=== PATIENT | female | born 1965 | race African-American/Black ===

== ENCOUNTER 2017-01-29 00:08 | Emergency (ER) | payer OTHER ==
[~2017-01-29] VITALS: Ht 157.5 cm; Wt 60.8 kg
[~2017-01-29 00:08] MED LIST: ACCU-CHEK; ACCU-CHEK ACTIVE STR SC; ACCU-CHEK COMPACT ST; ACCU-CHEK COMPACT ST XX; ACCU-CHEK SOFTCLIX SC; ACCU-CHEK SOFTCLIX TOP; ACCU-CHEK SOFTCLIX XX; ACCUPRIL5 MG PO; AMLODIPINE5 MG PO; AMOXICILLIN/PO500 MG PO; AMOXICILLIN500 MG OR; AMOXICILLIN500 MG PO; ASPIRIN325 MG PO; ATIVAN1 MG OR; AUGMENTIN875TAB PO; AVELOX400 MG OR; BENADRYL 50MG C50 MG PO; CARDIZEM CD240 MG PO; CITALOPRAM HYDR20 MG OR; CITALOPRAM20 MG PO; CITALOPRAM40 MG PO; CLONAZEP ODT0.5 MG OR; CLONAZEPAM0.5 MG PO; CLONIDINE0.1 MG PO; COUMADIN5 MG PO; COUMADIN7.5 MG PO; ENALAPRIL10 MG OR; ENOXAPARIN60 MG/0.1 SC; FERROUS SULF325 M1 PO; FLEXERIL OR; FLONASE NASAL50 MCG; FLONASE SPRAY50 MC1; FLONASE0.05 %; FLUARIX QUADRIV1 IN1 IM; FLUZONE SPLT1 M1 IM; GLIMEPIRIDE1 MG PO; GLYBURIDE1.25 MG OR; HYCODAN5 MG OR; HYDRALAZINE25 MG PO; HYDROCHLOROTH12.5 MG OR; HYDROCHLOROTH12.5 MG PO; IRON325 MG OR; IRON325 MG PO; LEXAPRO20 MG OR; LEXAPRO20 MG PO; LIPITOR80 MG PO; LISINOPRIL10 MG OR; LISINOPRIL10 MG PO; LORTAB 7.57.5 MG PO; MELOXICAM15 MG PO; METFORMIN1000 MG PO; METFORMIN500 M1 PO; METFORMIN500 MG PO; METOPROLOL25 MG PO; METRONIDAZOL500 MG PO; MOTRIN600 MG OR; MUCINEX600 MG PO; NAPROSYN250 MG PO; NAPROSYN500 MG OR; NAPROSYN500 MG PO; PEPCID40 MG OR; PRAVASTATIN10 MG PO; PREVACID30 M2 OR; PREVACID30 M2 PO; PROMETHAZINE25 MG OR; PROTONIX40 M2 PO; PROTONIX40 MG PO; ROBITUSSIN AC10 ML OR; SIMVASTATIN5 MG PO; TESSALON PER100 MG PO; TOPROL XL25 M1 PO; TORADOL IM; WARFARIN2.5 MG PO; WARFARIN5 MG PO; XANAX0.25 MG PO; ZESTRIL/PRI20 MG/TAB PO; ZPAK PO
[2017-01-29] MEDS ORDERED: AMOXICILLIN500 MG PO (01:07)
[2017-01-29 01:20] VITALS: BP 162/86
== END 2017-01-29 01:20 | disposition home or self-care (01) | DRG 153 ==
LOC: ED 00:08
DX: J02.0 Streptococcal pharyngitis (principal); I10 Essential (primary) hypertension; J01.90 Acute sinusitis, unspecified; F41.9 Anxiety disorder, unspecified; E11.9 Type 2 diabetes mellitus without complications; Z86.73 Personal history of transient ischemic attack (TIA), and cerebral infarction without residual deficits

== ENCOUNTER 2017-03-29 19:39 | Emergency (ER) | payer OTHER ==
[~2017-03-29] VITALS: Ht 157.5 cm; Wt 59.8 kg
[2017-03-29] MEDS ORDERED: JANUVIA50 MG PO (19:50)
[2017-03-29] MEDS ORDERED: METFORMIN HCL1000 MG PO (19:51)
[2017-03-29] MEDS ORDERED: AMOXICILLIN500 MG PO (20:43)
[2017-03-29 20:59] VITALS: BP 130/77
== END 2017-03-29 20:59 | disposition home or self-care (01) | DRG 153 ==
LOC: ED 19:39
DX: H66.92 Otitis media, unspecified, left ear (principal); J02.9 Acute pharyngitis, unspecified; I10 Essential (primary) hypertension; F41.9 Anxiety disorder, unspecified; E11.9 Type 2 diabetes mellitus without complications; Z86.73 Personal history of transient ischemic attack (TIA), and cerebral infarction without residual deficits

== ENCOUNTER 2017-06-22 17:29 | Emergency (ER) | payer OTHER ==
[~2017-06-22] VITALS: Ht 157.5 cm; Wt 56.0 kg
[~2017-06-22 17:29] MED LIST changes: +JANUVIA50 MG PO; +METFORMIN HCL1000 MG PO
[2017-06-22 18:17] LABS: INFLUENZA A NONE DETECTED (NONE DETECT); INFLUENZA B NONE DETECTED (NONE DETECT)
[2017-06-22 18:34] VITALS: BP 135/71
== END 2017-06-22 18:34 | disposition home or self-care (01) | DRG 866 ==
LOC: ED 17:29
PROVIDERS: Emergency Medicine
DX: B34.9 Viral infection, unspecified (principal); R05 Cough

== ENCOUNTER 2017-09-10 14:54 | Emergency (ER) | payer OTHER ==
[~2017-09-10] VITALS: Ht 157.5 cm; Wt 57.0 kg
[2017-09-10] MEDS ORDERED: LISINOP/HCTZ1 TAB PO (15:05)
[2017-09-10] MEDS ORDERED: ATORVASTATIN CA40 MG PO (15:07)
[2017-09-10] MEDS ORDERED: AMLODIPINE5 MG PO (15:07)
[2017-09-10] MEDS ORDERED: TGT ENTERIC-CO325 MG PO (15:08)
[2017-09-10] MEDS ORDERED: CITALOPRAM20 MG PO ×2 (15:09→16:40)
[2017-09-10] MEDS ORDERED: FLOVENT DI50 MCG/BLI (15:10)
[2017-09-10 15:41] LABS: HEMATOCRIT 41.1 % (37.0-47.0); HEMOGLOBIN 13.4 g/dl (12.0-16.0); IMMATURE GRANULOCYTES 0.2 % (0.0-1.0); MEAN CELL VOLUME 87.6 fL CALC (80.0-100.0); MEAN CORPUSCULAR HGB 28.6 pG CALC (26.0-32.0); MEAN CORPUSCULAR HGB CONC 32.6 g/L CALC (32.0-36.0); NEUT# 6.38 thou/uL (2.00-7.15); RED BLOOD COUNT 4.69 mill/uL (4.20-5.60); RED CELL DISTRI WIDTH 12.8 % (11.5-15.5)
[2017-09-10 15:50] LABS: ALKALINE PHOSPHATASE 98 u/l (38-126); BILIRUBIN, TOTAL 0.7 mg/dL (0.0-1.4); BUN 12 mg/dL (7-17); BUN/CREATININE RATIO 20 (12-20 (CALC)); CARBON DIOXIDE 24 mmol/l (22-30); CHLORIDE 104 mmol/l (95-108); CREATININE 0.6 mg/dL (0.5-1.0); GFR > 60 ML/MIN (>=60 (CALC)); GFR FOR AFR.AMER. > 60 ML/MIN (>=60 (CALC)); POTASSIUM 4.3 mmol/l (3.5-5.1); SGOT/AST 24 u/l (14-36); SGPT/ALT 28 u/l (9-52); TOTAL PROTEIN 8.7 g/dL (6.3-8.2)
[2017-09-10 15:56] LABS: ALBUMIN 4.7 g/dL (3.2-5.0); ANION GAP 22 (6-22 (CALC)); SODIUM 146 mmol/l (137-146)
[2017-09-10] MEDS ORDERED: ACCURETIC PO (16:40)
[2017-09-10 17:06] VITALS: BP 168/87
== END 2017-09-10 17:07 | disposition home or self-care (01) | DRG 880 ==
LOC: ED 14:54
PROVIDERS: Family Medicine
DX: F41.9 Anxiety disorder, unspecified (principal); I69.351 Hemiplegia and hemiparesis following cerebral infarction affecting right dominant side; I16.0 Hypertensive urgency; R07.9 Chest pain, unspecified
CPT/HCPCS: J2060

== ENCOUNTER 2018-11-29 14:24 | Observation (INO) | payer OTHER ==
[~2018-11-29] VITALS: Ht 162.6 cm; Wt 68.0 kg
[~2018-11-29 14:24] MED LIST changes: +ACCURETIC PO; +ATORVASTATIN CA40 MG PO; +FLOVENT DI50 MCG/BLI; +LISINOP/HCTZ1 TAB PO; +TGT ENTERIC-CO325 MG PO
--- NOTE | 2018-11-29 14:37 | NUR ---
PT TO ROOM VIA WC
[2018-11-29] MEDS ORDERED: JANUVIA100 MG PO (14:53)
--- NOTE | 2018-11-29 14:54 | NUR ---
PT COMPLAINED OF SEEING STARS THAT TURNED INTO CHEST PAIN EN ROUTE TO [facility] SP[facility], STATES PAIN IS EASING OFF CURRENTLY 2, WILL CONTINUE TO MONITOR.
[2018-11-29 15:20] LABS: HEMATOCRIT 35.2 % (37.0-47.0); IMMATURE GRANULOCYTES 0.4 % (0.0-5.0); MEAN CELL VOLUME 87.6 fL CALC (80.0-100.0); MEAN CORPUSCULAR HGB 28.4 pG CALC (26.0-32.0); MEAN CORPUSCULAR HGB CONC 32.4 g/L CALC (32.0-36.0); NEUT# 2.67 thou/uL (2.00-7.15); RED BLOOD COUNT 4.02 mill/uL (4.20-5.60); RED CELL DISTRI WIDTH 12.3 % (11.5-15.5)
[2018-11-29 15:25] LABS: HEMOGLOBIN 11.4 g/dl (12.0-16.0)
[2018-11-29 15:34] LABS: ANION GAP 13 (6-22 (CALC)); BUN 15 mg/dL (7-17); BUN/CREATININE RATIO 28 (12-20 (CALC)); CARBON DIOXIDE 27 mmol/l (22-30); CHLORIDE 104 mmol/l (95-108); CREATININE 0.6 mg/dL (0.5-1.0); GFR > 60 ML/MIN (>=60 (CALC)); GFR FOR AFR.AMER. > 60 ML/MIN (>=60 (CALC)); POTASSIUM 4.2 mmol/l (3.5-5.1); SODIUM 140 mmol/l (137-146)
--- NOTE | 2018-11-29 15:45 | NUR ---
PT RESTING ON STRETCHER, NO COMPLAINTS STATED AT THIS TIME. STATES THAT SHE IS FEELING MUCH BETTER
--- NOTE | 2018-11-29 16:50 | NUR ---
PT RESTING NO NEW COMPLAINTS OFFERED, CP RESOVLED, NO FRUTHER VISION COMPLAINTS AWARE OF PLANNED ADMISSION, WILL CONTINUE TO MONITOR.
--- NOTE | 2018-11-29 17:36 | NUR ---
REPORT CALLED TO TEDDY MARSH ON MED SURG
--- NOTE | 2018-11-29 17:45 | NUR ---
PT ADMITTED TO MED SURG TRASNPORTED VIA STRETCHER WITH TELE IN PLACE
[2018-11-29 17:48] VITALS: BP 114/72
--- NOTE | 2018-11-29 18:24 | NUR ---
REPORT RECEIVED FROM ARLEEN DONOVAN TRANSPORTED TO UNIT BY ED STAFF @ 1743 VIA STRETCHER AND TRANSFERRED TO BED. ALERT AND ORIENTED X 3 DENIED PAIN/DISCOMFORT, TELE MONITOR IN PLACE, ORIENTED TO ROOM AND CALL LEVY, SPOUSE AT BEDSIDE, WILL CONTINUE TO MONITOR.
--- NOTE | 2018-11-29 19:30 | NUR ---
PATIENT RESTING IN BED-AWAKE ALERT AND ORIENTEDX3. PATIENT DENIES ANY PAIN OR DISCOMFORT AT THIS TIME. PATIENT IS S/P CVA WITH RIGHT SIDED WEAKNESS AND SLURRED SPEECH. TELE MONITOR IN PLACE. SALINE LOCK TO RIGHT HAND INTACT AND APPEARS HEALTHY AT THIS TIME. SAFETY PRECAUTIONS REINFORCED. CALL LIGHT IN REACH. WILL CONT TO MONITOR.
[2018-11-29 19:50] VITALS: BP 118/72
--- NOTE | 2018-11-29 22:00 | NUR ---
PATIENT RESTING IN BED WITH NO COMPLAINTS AT THIS TIME. PATIENT PROVIDED WITH COT AND LINENS AND WILL BE STAYING THE NIGHT. CALL LIGHT IN REACH. WILL CONT TO MONITOR.
[2018-11-30 00:31] VITALS: BP 131/80
--- NOTE | 2018-11-30 04:00 | NUR ---
APPEARS SLEEPING AT THIS TIME RESTING IN BED WITH EYES CLOSED. RESTING ON COT PROVIDED. TELE MONITOR IN PL LONNIE. CALL LIGHT IN REACH,
[2018-11-30 04:20] VITALS: BP 114/73
[2018-11-30 05:49] LABS: HEMATOCRIT 35.3 % (37.0-47.0); HEMOGLOBIN 11.5 g/dl (12.0-16.0); IMMATURE GRANULOCYTES 0.3 % (0.0-5.0); MEAN CELL VOLUME 87.4 fL CALC (80.0-100.0); MEAN CORPUSCULAR HGB 28.5 pG CALC (26.0-32.0); MEAN CORPUSCULAR HGB CONC 32.6 g/L CALC (32.0-36.0); NEUT# 2.72 thou/uL (2.00-7.15); RED BLOOD COUNT 4.04 mill/uL (4.20-5.60); RED CELL DISTRI WIDTH 12.4 % (11.5-15.5)
[2018-11-30 06:02] LABS: ALBUMIN 3.9 g/dL (3.2-5.0); ALKALINE PHOSPHATASE 101 u/l (38-126); AMYLASE 133 u/l (30-110); ANION GAP 12 (6-22 (CALC)); BILIRUBIN, TOTAL 0.5 mg/dL (0.0-1.4); BUN 11 mg/dL (7-17); BUN/CREATININE RATIO 22 (12-20 (CALC)); CARBON DIOXIDE 26 mmol/l (22-30); CHLORIDE 106 mmol/l (95-108); CREATININE 0.5 mg/dL (0.5-1.0); GFR > 60 ML/MIN (>=60 (CALC)); GFR FOR AFR.AMER. > 60 ML/MIN (>=60 (CALC)); LIPASE 317 u/l (23-300); MAGNESIUM 1.9 mg/dL (1.6-2.3); SGOT/AST 18 u/l (14-36); SODIUM 140 mmol/l (137-146)
[2018-11-30 07:10] VITALS: BP 119/63
--- NOTE | 2018-11-30 08:05 | NUR ---
REPORT WAS RECEIVED FROM BRANDO. ASSESSMENT DONE. TELE IN PLACE. PT IS A&O X3. PT DENIES PAIN. RESPS EVEN AND UNLABORED. #22 RH THAT APPEARS HEALTHY. PT DENIES NEEDS AT THIS TIME. CALL LIGHT IN REACH. IN ROOM.
[2018-11-30 11:11] VITALS: BP 111/60
--- NOTE | 2018-11-30 11:58 | NUR ---
PT IS SITTING IN RECLINER GOING TO EAT HER LUNCH. PT DENIES PAIN. IN ROOM. CALL LIGHT IN REACH.
[2018-11-30] MEDS ORDERED: PROTONIX40 M2 PO (13:23)
--- NOTE | 2018-11-30 14:35 | NUR ---
Discharge instructions given. Patient verbalizes understanding of same. Discharged in stable condition via Wheelchair to Home with spouse. All belongings sent with pt.
== END 2018-11-30 14:20 | disposition home or self-care (01) ==
LOC: ED 14:24 → ED-I 15:15 → ED 15:53 → MS2 15:54
PROVIDERS: Family Medicine; ADMIT Internal Medicine Nephrology; ATTEND Internal Medicine Nephrology
DX: R07.89 Other chest pain (principal); K21.9 Gastro-esophageal reflux disease without esophagitis; I10 Essential (primary) hypertension; I25.10 Atherosclerotic heart disease of native coronary artery without angina pectoris; E11.9 Type 2 diabetes mellitus without complications; E78.5 Hyperlipidemia, unspecified; F41.8 Other specified anxiety disorders; Z86.73 Personal history of transient ischemic attack (TIA), and cerebral infarction without residual deficits
CPT/HCPCS: G0378

== ENCOUNTER 2019-04-11 07:22 | Day surgery (SDC) | payer OTHER ==
[~2019-04-11] VITALS: Ht 162.6 cm; Wt 65.8 kg
[~2019-04-11 07:22] MED LIST changes: +GLIPIZIDE5 MG PO; +JANUVIA100 MG PO
[2019-04-11 09:44] VITALS: BP 146/83
== END 2019-04-11 09:57 | disposition home or self-care (01) ==
LOC: ENDO 07:22
PROVIDERS: ATTEND Surgery
DX: Z12.11 Encounter for screening for malignant neoplasm of colon (principal); I10 Essential (primary) hypertension; E11.9 Type 2 diabetes mellitus without complications; Z86.73 Personal history of transient ischemic attack (TIA), and cerebral infarction without residual deficits; Z79.84 Long term (current) use of oral hypoglycemic drugs

== ENCOUNTER 2019-07-13 | Emergency (ER) | payer OTHER ==
[2019-07-14] MEDS ORDERED: CODEINE/GUAIFEN1 SOL PO (00:03)
[2019-07-14] MEDS ORDERED: PROAIR HFA108 MCG/AC IN (00:03)
== END 2019-07-14 00:20 | disposition home or self-care (01) ==
DX: J40 Bronchitis, not specified as acute or chronic (principal); I10 Essential (primary) hypertension; E11.9 Type 2 diabetes mellitus without complications; Z86.73 Personal history of transient ischemic attack (TIA), and cerebral infarction without residual deficits; Z79.84 Long term (current) use of oral hypoglycemic drugs

== ENCOUNTER 2019-12-07 11:49 | Observation (INO) | payer OTHER ==
[~2019-12-07] VITALS: Ht 157.5 cm; Wt 61.0 kg
[~2019-12-07 11:49] MED LIST changes: +CODEINE/GUAIFEN1 SOL PO; +PROAIR HFA108 MCG/AC IN
--- NOTE | 2019-12-07 11:50 | NUR ---
PT AMB TO ROOM WITH STEADY GAIT REFUSED W
[2019-12-07 12:17] LABS: HEMOGLOBIN 12.3 g/dl (12.0-16.0); IMMATURE GRANULOCYTES 0.3 % (0.0-5.0); MEAN CELL VOLUME 87.4 fL CALC (80.0-100.0); MEAN CORPUSCULAR HGB 27.6 pG CALC (26.0-32.0); MEAN CORPUSCULAR HGB CONC 31.5 g/dL CAL (32.0-36.0); NEUT# 3.08 thou/uL (2.00-7.15); RED BLOOD COUNT 4.46 mill/uL (4.20-5.60); RED CELL DISTRI WIDTH 12.9 % (11.5-15.5)
[2019-12-07] MEDS ORDERED: CELEXA20 MG PO (12:21)
[2019-12-07 12:31] LABS: ALKALINE PHOSPHATASE 94 u/l (38-126); ANION GAP 13 (6-22 (CALC)); BUN 13 mg/dL (7-17); BUN/CREATININE RATIO 22 (12-20 (CALC)); CARBON DIOXIDE 27 mmol/l (22-30); CHLORIDE 101 mmol/l (95-108); CREATININE 0.6 mg/dL (0.5-1.0); GFR > 60 ML/MIN (>=60 (CALC)); GFR FOR AFR.AMER. > 60 ML/MIN (>=60 (CALC)); POTASSIUM 3.8 mmol/l (3.5-5.1); SODIUM 137 mmol/l (137-146); TOTAL PROTEIN 8.3 g/dL (6.3-8.2)
[2019-12-07 12:32] LABS: ALBUMIN 4.8 g/dL (3.2-5.0); BILIRUBIN, TOTAL 0.8 mg/dL (0.0-1.4); SGOT/AST 51 u/l (14-36)
--- NOTE | 2019-12-07 12:50 | NUR ---
PT RESTING ON STRETHER; DENIES ANY CP AT THIS TIME; MONITORING DEVICES IN PLACE; VSS; ADVISED OF CONTINUED WAIT TIME; WILL CONTINUE TO MONITOR
--- NOTE | 2019-12-07 13:27 | NUR ---
DR RHOADES AT BEDSIDE TO DISCUSS POC AND FINDINGS
--- NOTE | 2019-12-07 13:45 | NUR ---
PT AMBULATED TO BATHROOM WITH STEADY GAIT. DENIES CHEST PAIN.
--- NOTE | 2019-12-07 14:50 | NUR ---
PT ASSISTED WITH MEAL TRAY, DENIES ANY CHEST PAIN OR NEEDS AT THIS TIME.
--- NOTE | 2019-12-07 15:43 | NUR ---
RESTING ON STRETCHER WITH EYES CLOSED, AWAKENS EASILY. MONITORS IN PLACE, VSS. DENIES ANY NEEDS AT THIS TIME.
--- NOTE | 2019-12-07 15:53 | NUR ---
PT AMBULATED TO BATHROOM WITH STEADY GAIT. DENIES CHEST PAIN. PT ADVISED OF WAIT TIME AND PLAN TO ADMIT.
--- NOTE | 2019-12-07 16:14 | NUR ---
NURSE TO NURSE REPORT CALLED TO LOL[facility]
--- NOTE | 2019-12-07 16:43 | NUR ---
PT TO ROOM VIA WC ACCOMPANIED BY ER STAFF; PT AMBULATORY TO BED WITH STAND BY ASSIST; VS AND WEIGHT OBTAINED; PT A/O X3; PT C/O MIDSTERNAL CP 07/03, DOES NOT WANT PAIN MED AT THIS TIME; TELE MONITOR IN PLACE, SR 68, PER ER MONITORING; #20 GAUGE IN [address]FA IN PLACE, NO REDNESS OR EDEMA NOTED; LUNGS CLEAR THROUGHOUT; PT ORIENTED TO ROOM AND CALL SYSTEM; WILL CONTINUE TO MONITOR.
--- NOTE | 2019-12-07 16:43 | NUR ---
TO ROOM 277 VIA WHEELCHAIR IN STABLE CONDITION. TELE MONITOR IN PLACE.
[2019-12-07 16:55] VITALS: BP 161/64
[2019-12-07 18:30] VITALS: BP 146/65
--- NOTE | 2019-12-07 21:22 | NUR ---
PT RESTING IN BED ALERT AND ORIENTED. RESPIRATIONS EVEN AND UNLABORED ON RA. LUNGS SOUND CLEAR. PEDAL PULSES ARE STRONF. PT DENIES PAIN OR DISCOMFORT AT THIS TIME. SAFETY PRECAUTIONS IN PLACE. WILL CONTINUE TO MONITOR.
[2019-12-07 23:54] VITALS: BP 151/79
--- NOTE | 2019-12-08 00:18 | NUR ---
PT RESTING IN BED, NO S/S OF DISTRESS AT THIS TIME. SAFETY PRECAUTIONS IN PLACE, WILL CONTINUE TO MONITOR.
--- NOTE | 2019-12-08 04:24 | NUR ---
PT RESTING IN BED. NO S/S OF DISTRESS AT THIS TIME. SAFETY PRECAUTIONS IN PLACE. WILL CONTINUE TO MONITOR.
[2019-12-08 04:41] VITALS: BP 131/78
[2019-12-08 06:38] LABS: CHOLESTEROL HDL RATIO 2.7 (<4.4 (CALC)); MAGNESIUM 1.9 mg/dL (1.6-2.3)
--- NOTE | 2019-12-08 08:00 | NUR ---
REPORT RECEIVED FROM SALMA HAQUE. PT SITTING UPRIGHT IN BED. DENIES PAIN. REPORTING OF CONCERNS ENCOURAGED. PLAN OF CARE DISCUSSED. PT REPORTS ANTICIPATION OF DISCHARGE. DISCHARGE HOME PROCESS REVIEWED. PT STATES UNDERSTANDING. SPEECH CHOPPY, PT REPORTS HISTORY OF CVA. CALL LIGHT REVIEWED AND IN REACH. PT STATES UNDERSTANDING.
--- NOTE | 2019-12-08 08:30 | NUR ---
DR. PHILIPPE AND MIGUEL ANGEL OROZCON IN TO SEE PT AT THIS TIME. DSICHARGE HOME DISCUSSED AND AGREED UPON.
[2019-12-08 08:33] VITALS: BP 161/77
[2019-12-08 10:47] VITALS: BP 147/71
--- NOTE | 2019-12-08 12:08 | NUR ---
Discharge instructions given. Patient verbalizes understanding of same. Discharged in stable condition via Wheelchair to Home with family. All belongings sent with pt.
--- NOTE | 2019-12-11 14:32 | NUR ---
patient called asking for Covid results. Notified patient of negative covid results.
== END 2019-12-08 12:08 | disposition home or self-care (01) ==
LOC: ED 11:49 → ED-I 13:17 → ED 13:29 → MS2 13:30 → ED-I 13:30 → MS2 15:49
PROVIDERS: Family Medicine; ADMIT Internal Medicine; ATTEND Internal Medicine
DX: R07.89 Other chest pain (principal); I10 Essential (primary) hypertension; E11.9 Type 2 diabetes mellitus without complications; I69.351 Hemiplegia and hemiparesis following cerebral infarction affecting right dominant side; I69.398 Other sequelae of cerebral infarction; M24.574 Contracture, right foot; M24.541 Contracture, right hand; Z79.84 Long term (current) use of oral hypoglycemic drugs; Z20.828 Contact with and (suspected) exposure to other viral communicable diseases
CPT/HCPCS: G0378

== ENCOUNTER 2020-12-11 13:31 | Emergency (ER) | payer OTHER ==
[~2020-12-11] VITALS: Ht 157.5 cm; Wt 59.1 kg
[~2020-12-11 13:31] MED LIST changes: +CELEXA20 MG PO
[2020-12-11 16:47] VITALS: BP 182/83
== END 2020-12-11 16:44 | disposition home or self-care (01) ==
LOC: ED 13:31
DX: M79.671 Pain in right foot (principal); I10 Essential (primary) hypertension; E11.9 Type 2 diabetes mellitus without complications; I69.398 Other sequelae of cerebral infarction; Z79.84 Long term (current) use of oral hypoglycemic drugs

== ENCOUNTER 2021-06-11 18:07 | Emergency (ER) | payer OTHER ==
[~2021-06-11] VITALS: Ht 157.5 cm; Wt 74.0 kg
[~2021-06-11 18:07] MED LIST changes: +CVS FLUTICASON50 MCG; +DICLOFENAC75 MG PO; +GABAPENTIN400 M2 PO; +TRAMADOL HCL50 MG PO
[2021-06-11] MEDS ORDERED: NORVASC2.5 M1 PO (19:07)
[2021-06-11] MEDS ORDERED: FLEXERIL5 M1 PO (19:07)
[2021-06-11 19:57] LABS: HEMATOCRIT 38.2 % (37.0-47.0); HEMOGLOBIN 12.3 g/dl (12.0-16.0); IMMATURE GRANULOCYTES 0.1 % (0.0-5.0); MEAN CELL VOLUME 88.8 fL CALC (80.0-100.0); MEAN CORPUSCULAR HGB 28.6 pG CALC (26.0-32.0); MEAN CORPUSCULAR HGB CONC 32.2 g/dL CAL (32.0-36.0); NEUT# 3.94 thou/uL (2.00-7.15); RED BLOOD COUNT 4.3 mill/uL (4.20-5.60); RED CELL DISTRI WIDTH 12.9 % (11.5-15.5)
[2021-06-11 20:29] LABS: ALBUMIN 3.9 g/dL (3.2-5.0); ALKALINE PHOSPHATASE 96 u/l (38-126); ANION GAP 10 (6-22 (CALC)); BILIRUBIN, TOTAL 0.5 mg/dL (0.0-1.4); BUN 15 mg/dL (7-17); BUN/CREATININE RATIO 21 (12-20 (CALC)); CARBON DIOXIDE 30 mmol/l (22-30); CHLORIDE 103 mmol/l (95-108); CREATININE 0.7 mg/dL (0.5-1.0); GFR > 60 ML/MIN (>=60 (CALC)); GFR FOR AFR.AMER. > 60 ML/MIN (>=60 (CALC)); POTASSIUM 4.3 mmol/l (3.5-5.1); SGOT/AST 25 u/l (14-36); SODIUM 138 mmol/l (137-146); TOTAL PROTEIN 7.5 g/dL (6.3-8.2)
[2021-06-11 22:00] VITALS: BP 150/63
== END 2021-06-11 22:00 | disposition left against medical advice (07) ==
LOC: ED 18:07
PROVIDERS: Family Medicine
DX: R20.2 Paresthesia of skin (principal); U07.1 COVID-19; I10 Essential (primary) hypertension; E11.9 Type 2 diabetes mellitus without complications; Z91.19 Patient's noncompliance with other medical treatment and regimen; Z86.73 Personal history of transient ischemic attack (TIA), and cerebral infarction without residual deficits; Z79.82 Long term (current) use of aspirin; Z79.84 Long term (current) use of oral hypoglycemic drugs

== ENCOUNTER 2022-05-11 13:49 | Emergency (ER) | payer OTHER ==
[~2022-05-11] VITALS: Ht 157.5 cm; Wt 62.0 kg
[~2022-05-11 13:49] MED LIST changes: +FLEXERIL5 M1 PO; +NORVASC2.5 M1 PO
[2022-05-11 15:27] VITALS: BP 136/68
[2022-05-11 15:31] VITALS: BP 135/66
[2022-05-11 16:00] VITALS: BP 133/74
[2022-05-11 16:27] LABS: HEMATOCRIT 36.1 % (37.0-47.0); HEMOGLOBIN 11.8 g/dl (12.0-16.0); MEAN CELL VOLUME 88.7 fL CALC (80.0-100.0); MEAN CORPUSCULAR HGB CONC 32.7 g/dL CAL (32.0-36.0); NEUT# 2.14 thou/uL (2.00-7.15); RED BLOOD COUNT 4.07 mill/uL (4.20-5.60); RED CELL DISTRI WIDTH 12.5 % (11.5-15.5)
[2022-05-11 16:35] LABS: ALBUMIN 4.2 g/dL (3.2-5.0); ALKALINE PHOSPHATASE 92 u/l (38-126); ANION GAP 11 (6-22 (CALC)); BILIRUBIN, TOTAL 0.5 mg/dL (0.0-1.4); BUN 10 mg/dL (7-17); BUN/CREATININE RATIO 21 (12-20 (CALC)); CARBON DIOXIDE 26 mmol/l (22-30); CHLORIDE 107 mmol/l (95-108); CREATININE 0.5 mg/dL (0.5-1.0); GFR FOR AFR.AMER. > 60 ML/MIN (>=60 (CALC)); GFR OTHER RACES > 60 ML/MIN (>=60 (CALC)); POTASSIUM 4.1 mmol/l (3.5-5.1); SGOT/AST 25 u/l (14-36); SODIUM 141 mmol/l (137-146); TOTAL PROTEIN 7.8 g/dL (6.3-8.2)
== END 2022-05-11 18:36 | disposition home or self-care (01) ==
LOC: ED 13:49
PROVIDERS: Emergency Medicine
DX: F41.9 Anxiety disorder, unspecified (principal); I10 Essential (primary) hypertension; E11.9 Type 2 diabetes mellitus without complications; I69.331 Monoplegia of upper limb following cerebral infarction affecting right dominant side; Z79.84 Long term (current) use of oral hypoglycemic drugs; Z77.120 Contact with and (suspected) exposure to mold (toxic); Z20.822 Contact with and (suspected) exposure to COVID-19

== ENCOUNTER 2022-12-07 17:44 | Emergency (ER) | payer OTHER ==
[~2022-12-07] VITALS: Ht 154.9 cm; Wt 58.9 kg
[2022-12-07] MEDS ORDERED: MELOXICAM7.5 MG PO (20:47)
[2022-12-07 20:51] VITALS: BP 107/68
== END 2022-12-07 21:20 | disposition home or self-care (01) ==
LOC: ED 17:44
DX: M70.61 Trochanteric bursitis, right hip (principal); I10 Essential (primary) hypertension; E11.9 Type 2 diabetes mellitus without complications; I69.898 Other sequelae of other cerebrovascular disease; M24.551 Contracture, right hip; Z79.84 Long term (current) use of oral hypoglycemic drugs

== ENCOUNTER 2022-12-14 09:18 | Emergency (ER) | payer OTHER ==
[~2022-12-14] VITALS: Ht 154.9 cm; Wt 63.0 kg
[~2022-12-14 09:18] MED LIST changes: +MELOXICAM7.5 MG PO
[2022-12-14 09:25] VITALS: BP 130/74
[2022-12-14 09:40] VITALS: BP 121/73
[2022-12-14 10:26] LABS: BASO% 0.5 % (0-3); EOS% 3.6 % (0-8); HEMOGLOBIN 10.9 g/dl (12.0-16.0); LYMPH% 49.5 % (15-41); MEAN CELL VOLUME 87.6 fL CALC (80.0-100.0); MEAN CORPUSCULAR HGB 28.1 pG CALC (26.0-32.0); MEAN CORPUSCULAR HGB CONC 32.1 g/dL CAL (32.0-36.0); MONO% 7.8 % (2-13); NEUT# 1.59 thou/uL (2.00-7.15); NEUT% 38.6 % (42-76); RED BLOOD COUNT 3.88 mill/uL (4.20-5.60); RED CELL DISTRI WIDTH 12.4 % (11.5-15.5)
[2022-12-14 10:56] LABS: ALBUMIN 3.7 g/dL (3.2-5.0); ALKALINE PHOSPHATASE 89 u/l (38-126); ANION GAP 10 (6-22 (CALC)); BILIRUBIN, TOTAL 0.5 mg/dL (0.02-1.3); BUN 14 mg/dL (7-17); BUN/CREATININE RATIO 24 (12-20 (CALC)); CARBON DIOXIDE 25 mmol/l (22-30); CHLORIDE 105 mmol/l (95-108); CREATININE 0.6 mg/dL (0.5-1.0); GFR FOR AFR.AMER. > 60 ML/MIN (>=60 (CALC)); GFR OTHER RACES > 60 ML/MIN (>=60 (CALC)); POTASSIUM 4.3 mmol/l (3.5-5.1); SGOT/AST 20 u/l (14-36); SODIUM 136 mmol/l (137-146); TOTAL PROTEIN 6.8 g/dL (6.3-8.2)
[2022-12-14 11:59] VITALS: BP 130/74
== END 2022-12-14 12:06 | disposition home or self-care (01) ==
LOC: ED 09:18
PROVIDERS: Family Medicine
DX: M25.512 Pain in left shoulder (principal); I10 Essential (primary) hypertension; E11.9 Type 2 diabetes mellitus without complications; I69.351 Hemiplegia and hemiparesis following cerebral infarction affecting right dominant side; Z79.84 Long term (current) use of oral hypoglycemic drugs

== ENCOUNTER 2023-07-04 10:10 | Emergency (ER) | payer OTHER ==
[~2023-07-04] VITALS: Ht 154.9 cm; Wt 61.2 kg
[2023-07-04] VITALS (11 sets, daily range): BP systolic 109–127; BP diastolic 52–70
[~2023-07-04 10:10] MED LIST changes: +VOLTAREN - GENE75 MG PO
[2023-07-04] MEDS ORDERED: TAM75CAP PO (12:22)
== END 2023-07-04 13:05 | disposition home or self-care (01) ==
LOC: ED 10:10
DX: J10.1 Influenza due to other identified influenza virus with other respiratory manifestations (principal); I10 Essential (primary) hypertension; E11.9 Type 2 diabetes mellitus without complications; Z86.73 Personal history of transient ischemic attack (TIA), and cerebral infarction without residual deficits; Z79.84 Long term (current) use of oral hypoglycemic drugs; Z20.822 Contact with and (suspected) exposure to COVID-19

== ENCOUNTER 2024-06-13 10:36 | Emergency (ER) | payer OTHER ==
[~2024-06-13] VITALS: Ht 154.9 cm; Wt 59.0 kg
[~2024-06-13 10:36] MED LIST changes: +ONDANSETRON4 MG PO; +TAM75CAP PO
[2024-06-13] MEDS ORDERED: traMADol HCL 50 MG/TAB PO ONE (11:10)
[2024-06-13 12:39] VITALS: BP 142/82
[2024-06-13 13:00] VITALS: BP 140/78
[2024-06-13] MEDS ORDERED: TRAMADOL HYDROC50 M1 PO (13:15)
[2024-06-13 13:30] VITALS: BP 140/79
[2024-06-13 13:41] VITALS: BP 140/79
== END 2024-06-13 13:50 | disposition home or self-care (01) ==
LOC: ED 10:36
DX: S70.02XA Contusion of left hip, initial encounter (principal); S30.0XXA Contusion of lower back and pelvis, initial encounter; S46.912A Strain of unspecified muscle, fascia and tendon at shoulder and upper arm level, left arm, initial encounter; E11.9 Type 2 diabetes mellitus without complications; I10 Essential (primary) hypertension; I69.951 Hemiplegia and hemiparesis following unspecified cerebrovascular disease affecting right dominant side; E78.5 Hyperlipidemia, unspecified; W07.XXXA Fall from chair, initial encounter; Y92.59 Other trade areas as the place of occurrence of the external cause; Z79.84 Long term (current) use of oral hypoglycemic drugs; Z79.82 Long term (current) use of aspirin